=== PATIENT | male | born 1955 | race Asian ===

== ENCOUNTER 2024-04-19 18:17 | Inpatient (IN) | payer OTHER, MEDICAID ==
[~2024-04-19] VITALS: Ht 172.7 cm; Wt 75.3 kg
[2024-04-19 18:58] VITALS: BP 138/81; PULSE 102; RESP 18; TEMP 97.2; O2SAT 94
[2024-04-19 19:27] LABS: BASOPHILS % (AUTO) 0.4 % (0.0-2.0); EOSINOPHILS # (AUTO) 0.3 K/uL (0-0.4); EOSINOPHILS % (AUTO) 3.3 % (0.0-4.0); HEMOGLOBIN 7.2 g/dL (12.0-18.0); LYMPHOCYTES # (AUTO) 1.5 K/uL (2.0-11.5); LYMPHOCYTES % (AUTO) 19.3 % (20.5-51.1); MEAN CORPUSCULAR HEMOGLOBIN 32 pg (27-31); MEAN CORPUSCULAR HGB CONC 33 g/dL (33-37); MEAN CORPUSCULAR VOLUME 96.4 fL (80-94); MONOCYTES # (AUTO) 0.5 K/uL (0.8-1.0); MONOCYTES % (AUTO) 6.5 % (1.7-9.3); NEUTROPHILS # (AUTO) 5.5 K/uL (1.8-7.7); NEUTROPHILS % (AUTO) 70.5 % (42.2-75.2); PLATELET COUNT (AUTO) 269 K/uL (140-450); RED BLOOD CELL COUNT(AUTO) 2.28 MIL/uL (4.20-6.10); WHITE BLOOD COUNT (AUTO) 7.9 K/uL (4.8-10.8)
[2024-04-19 19:28] VITALS: O2SAT 98
[2024-04-19 19:47] LABS: ALBUMIN 1.2 g/dL (3.4-5.0); ANION GAP 13.9 (8-16); CALCIUM 7.4 mg/dL (8.5-10.1); CARBON DIOXIDE 21.3 mmol/L (21-32); CREATININE 1.9 mg/dL (0.6-1.3); POTASSIUM 4.2 mmol/L (3.5-5.1); TOTAL BILIRUBIN 0.1 mg/dL (0.0-1.0); TOTAL PROTEIN, SERUM 4.5 g/dL (6.4-8.2)
[2024-04-19 20:55] LABS: BILIRUBIN,URINE NEGATIVE (NEGATIVE); BLOOD, URINE NEGATIVE (NEGATIVE); LEUKOCYTE ESTERASE ,URINE TRACE (NEGATIVE); NITRITE, URINE NEGATIVE (NEGATIVE); PH,URINE 5.5 (5.0-9.0); PROTEIN,URINE 3+ (NEGATIVE); UGLUCOSE 1+ (NEGATIVE); UROBILINOGEN,URINE 0.2 EU/dL (0.2 - 1)
[2024-04-19 20:59] LABS: APPEARANCE,URINE CLOUDY (CLEAR); COLOR,URINE AMBER (YELLOW)
[2024-04-19 21:04] LABS: RBC,URINE 0-5 /HPF (0-5); WBC,URINE 0-5 /HPF (0-5)
[2024-04-19 21:05] LABS: BACTERIA,URINE FEW /HPF (None Seen); SQUAMOUS EPITHELIAL CELL,UR 0-3 (FEW) /LPF (0-3 (FEW))
[2024-04-19 21:20] LABS: FINE GRANULAR CASTS,URINE 0-10 /LPF (None Seen)
[2024-04-19] MEDS ORDERED: FERR325E14 PO (23:31)
[2024-04-19] MEDS ORDERED: DOCU-299 PO (23:31)
[2024-04-19] MEDS ORDERED: FINA-54 PO (23:31)
[2024-04-19] MEDS ORDERED: XALOS OP (23:31)
[2024-04-19] MEDS ORDERED: LIP80 PO (23:31)
[2024-04-19] MEDS ORDERED: GABA-636 PO (23:31)
[2024-04-19] MEDS ORDERED: MAGN400S60 PO (23:31)
[2024-04-19] MEDS ORDERED: ACET-2619 PO (23:31)
[2024-04-19] MEDS ORDERED: ASCO500T95 PO (23:31)
[2024-04-19] MEDS ORDERED: TAMS0.4C97 PO (23:31)
[2024-04-19] MEDS ORDERED: BISA-279 RC (23:31)
[2024-04-19] MEDS ORDERED: CLON-1170 PO (23:31)
[2024-04-19] MEDS ORDERED: FLEPED RC (23:31)
[2024-04-19] MEDS ORDERED: ICOS1SGL PO (23:31)
[2024-04-19] MEDS ORDERED: BRIM5SOL3 OP (23:31)
[2024-04-19] MEDS ORDERED: FURO-570 PO (23:31)
[2024-04-19] MEDS ORDERED: HYDR100T49 PO (23:31)
[2024-04-19] MEDS ORDERED: DORZ10DR11 OP (23:31)
[2024-04-19] MEDS: FUROSEMIDE 40 MG/4 ML VIAL IVP ONE (23:35)
[2024-04-19] MEDS ORDERED: ALBUTEROL 0.083% 2.5 MG/3 ML NEBU INH PRN (23:40)
[2024-04-19] MEDS ORDERED: ONDANSETRON 4 MG/2 ML VIAL IVP PRN (23:40)
[2024-04-19] MEDS ORDERED: INSULIN LISPRO SLIDING SCALE 100 UNITS/ML VIAL SUBQ PRN (23:50)
[2024-04-19] MEDS ORDERED: DEXTROSE 50% 50 ML SYR IVP PRN (23:50)
[2024-04-20] VITALS (8 sets, daily range): BP systolic 123–163; BP diastolic 73–89; PULSE 96–114; RESP 16–19; TEMP 96.2–97.6; O2SAT 98–100
[2024-04-20 06:59] LABS: BASOPHILS % (AUTO) 0.5 % (0.0-2.0); EOSINOPHILS # (AUTO) 0.3 K/uL (0-0.4); EOSINOPHILS % (AUTO) 2.8 % (0.0-4.0); HEMATOCRIT 24.1 % (36-52); HEMOGLOBIN 8.1 g/dL (12.0-18.0); LYMPHOCYTES # (AUTO) 2.1 K/uL (2.0-11.5); LYMPHOCYTES % (AUTO) 22.3 % (20.5-51.1); MEAN CORPUSCULAR HEMOGLOBIN 32 pg (27-31); MEAN CORPUSCULAR HGB CONC 34 g/dL (33-37); MEAN CORPUSCULAR VOLUME 94.9 fL (80-94); MONOCYTES # (AUTO) 0.6 K/uL (0.8-1.0); MONOCYTES % (AUTO) 6.6 % (1.7-9.3); NEUTROPHILS # (AUTO) 6.5 K/uL (1.8-7.7); NEUTROPHILS % (AUTO) 67.8 % (42.2-75.2); PLATELET COUNT (AUTO) 263 K/uL (140-450); RED BLOOD CELL COUNT(AUTO) 2.54 MIL/uL (4.20-6.10); RED CELL DISTRIBUTION WIDTH 15.1 % (11.6-13.7); WHITE BLOOD COUNT (AUTO) 9.6 K/uL (4.8-10.8)
[2024-04-20 07:16] LABS: ANION GAP 10.5 (8-16); CALCIUM 7.7 mg/dL (8.5-10.1); CARBON DIOXIDE 23.8 mmol/L (21-32); CREATININE 1.9 mg/dL (0.6-1.3); POTASSIUM 4.3 mmol/L (3.5-5.1)
[2024-04-20] MEDS: BLOOD GLUCOSE MONITORING 1 DEV DEV FS SCH (07:30)
[2024-04-20] MEDS ORDERED: ICOSAPENT ETHYL PO SCH (09:00)
[2024-04-20] MEDS ORDERED: CLONIDINE HYDROCHLORIDE 0.1 MG TAB PO SCH (09:00)
[2024-04-20] MEDS ORDERED: NON-FORMULARY ITEM (Brimonidine Tartrate* (Alphagan P 0.1% Ophthalmic Soln*) 1 DROP) OP SCH (09:00)
[2024-04-20] MEDS: LATANOPROST 0.005% OP 2.5 ML BTL OP SCH (09:00)
[2024-04-20] MEDS ORDERED: NON-FORMULARY ITEM (Dorzolamide HCl/Timolol Maleat (Dorzolamide-Timolol Eye Drops) 1 DROP) OP SCH (09:00)
[2024-04-20] MEDS: FUROSEMIDE 20 MG/2 ML VIAL IVP SCH (10:58)
[2024-04-20] MEDS: ASCORBIC ACID 500 MG TAB PO SCH (10:59)
[2024-04-20] MEDS: FERROUS SULFATE 325 MG TABEC PO SCH (10:59)
[2024-04-20] MEDS: TAMSULOSIN 0.4 MG CAP PO SCH (10:59)
[2024-04-20] MEDS: FINASTERIDE 5 MG TAB PO SCH (11:00)
[2024-04-20] MEDS: GABAPENTIN 100 MG CAP PO SCH (11:00)
[2024-04-20] MEDS: hydrALAZINE 25 MG TAB PO SCH (11:03)
[2024-04-20] MEDS: ALBUMIN HUMAN 25% 50 ML IV SCH (21:08)
[2024-04-21] VITALS (7 sets, daily range): BP systolic 126–176; BP diastolic 67–86; PULSE 94–111; RESP 18; TEMP 97.7–98.6; O2SAT 96–100
[2024-04-21] MEDS: hydrALAZINE 20 MG/ML VIAL IVP PRN (00:39)
[2024-04-21 05:57] LABS: BASOPHILS # (AUTO) 0.1 K/uL (0.00-0.22); BASOPHILS % (AUTO) 0.7 % (0.0-2.0); EOSINOPHILS # (AUTO) 0.3 K/uL (0-0.4); EOSINOPHILS % (AUTO) 3.3 % (0.0-4.0); HEMATOCRIT 20.5 % (36-52); LYMPHOCYTES # (AUTO) 1.7 K/uL (2.0-11.5); LYMPHOCYTES % (AUTO) 20.2 % (20.5-51.1); MEAN CORPUSCULAR HEMOGLOBIN 32 pg (27-31); MEAN CORPUSCULAR HGB CONC 34 g/dL (33-37); MEAN CORPUSCULAR VOLUME 94.2 fL (80-94); MONOCYTES # (AUTO) 0.6 K/uL (0.8-1.0); MONOCYTES % (AUTO) 6.6 % (1.7-9.3); NEUTROPHILS # (AUTO) 5.8 K/uL (1.8-7.7); NEUTROPHILS % (AUTO) 69.2 % (42.2-75.2); PLATELET COUNT (AUTO) 241 K/uL (140-450); RED BLOOD CELL COUNT(AUTO) 2.18 MIL/uL (4.20-6.10); RED CELL DISTRIBUTION WIDTH 14.6 % (11.6-13.7); WHITE BLOOD COUNT (AUTO) 8.3 K/uL (4.8-10.8)
[2024-04-21 07:03] LABS: ALBUMIN 1.3 g/dL (3.4-5.0); ANION GAP 10.1 (8-16); CALCIUM 7.3 mg/dL (8.5-10.1); CREATININE 1.8 mg/dL (0.6-1.3); POTASSIUM 4.1 mmol/L (3.5-5.1); TOTAL BILIRUBIN 0.2 mg/dL (0.0-1.0); TOTAL PROTEIN, SERUM 4.2 g/dL (6.4-8.2)
[2024-04-21] MEDS ORDERED: LATANOPROST 0.005% OP 2.5 ML BTL OP SCH (09:00)
[2024-04-21 10:05] LABS: CREATININE,URINE RANDOM 21 mg/dL (30-125); URINE SODIUM, RANDOM 120 mmol/l (40-220)
[2024-04-21] MEDS: LATANOPROST 0.005% OP 2.5 ML BTL OP SCH (21:25)
[2024-04-22 04:00] VITALS: BP 151/92; PULSE 95; RESP 18; TEMP 97.9; O2SAT 98
[2024-04-22 06:53] LABS: BASOPHILS % (AUTO) 0.4 % (0.0-2.0); EOSINOPHILS # (AUTO) 0.2 K/uL (0-0.4); EOSINOPHILS % (AUTO) 2.7 % (0.0-4.0); HEMATOCRIT 21.9 % (36-52); HEMOGLOBIN 7.4 g/dL (12.0-18.0); LYMPHOCYTES # (AUTO) 1.9 K/uL (2.0-11.5); LYMPHOCYTES % (AUTO) 22.1 % (20.5-51.1); MEAN CORPUSCULAR HEMOGLOBIN 32 pg (27-31); MEAN CORPUSCULAR HGB CONC 34 g/dL (33-37); MEAN CORPUSCULAR VOLUME 94.8 fL (80-94); MONOCYTES # (AUTO) 0.5 K/uL (0.8-1.0); MONOCYTES % (AUTO) 5.9 % (1.7-9.3); NEUTROPHILS % (AUTO) 68.9 % (42.2-75.2); PLATELET COUNT (AUTO) 251 K/uL (140-450); RED BLOOD CELL COUNT(AUTO) 2.32 MIL/uL (4.20-6.10); RED CELL DISTRIBUTION WIDTH 14.3 % (11.6-13.7); WHITE BLOOD COUNT (AUTO) 8.7 K/uL (4.8-10.8)
[2024-04-22 07:56] LABS: CALCIUM 7.6 mg/dL (8.5-10.1); CARBON DIOXIDE 23.9 mmol/L (21-32); CREATININE 1.8 mg/dL (0.6-1.3); POTASSIUM 3.9 mmol/L (3.5-5.1)
[2024-04-22 08:00] VITALS: PULSE 89
[2024-04-22 08:34] VITALS: BP 166/72; PULSE 89; RESP 16; TEMP 98.3; O2SAT 98
[2024-04-22 16:00] VITALS: BP 149/77; PULSE 93; RESP 18; TEMP 98.5; O2SAT 98
[2024-04-22 20:00] VITALS: PULSE 93; RESP 18; O2SAT 98
[2024-04-22 21:37] VITALS: BP 159/79; PULSE 94; RESP 18; TEMP 97.6; O2SAT 98
[2024-04-23 08:00] VITALS: BP 142/79; PULSE 90; RESP 18; TEMP 97.9; O2SAT 98
== END 2024-04-23 14:30 | DRG 432 ==
LOC: MED 18:17 → MTU 23:42 → MMU 04-20 06:52 → MTU 04-21 16:00
PROVIDERS: ADMIT Student in an Organized Health Care Education/Training Program; ATTEND Student in an Organized Health Care Education/Training Program
DX: K74.60 Unspecified cirrhosis of liver (principal); E43 Unspecified severe protein-calorie malnutrition; J96.00 Acute respiratory failure, unspecified whether with hypoxia or hypercapnia; N17.9 Acute kidney failure, unspecified; J90 Pleural effusion, not elsewhere classified; R18.8 Other ascites; I12.9 Hypertensive chronic kidney disease with stage 1 through stage 4 chronic kidney disease, or unspecified chronic kidney disease; E11.22 Type 2 diabetes mellitus with diabetic chronic kidney disease; N18.9 Chronic kidney disease, unspecified; E87.70 Fluid overload, unspecified; E88.09 Other disorders of plasma-protein metabolism, not elsewhere classified; Z68.25 Body mass index [BMI] 25.0-25.9, adult; Z79.899 Other long term (current) drug therapy
CPT/HCPCS: 36415; 76705; 80048; 80053; 81001; 82570; 82948; 83690; 83735; 84156; 84300; 85025; 87081; 96374; 99285; J0360; J0696; J1815; J1940; J7060; P9046; Q0092

== ENCOUNTER 2024-06-14 11:58 | Inpatient (IN) | payer OTHER, MEDICAID ==
[~2024-06-14] VITALS: Ht 167.6 cm; Wt 70.8 kg
[~2024-06-14 11:58] MED LIST: ACET-2619 PO; ASCO500T95 PO; BISA-279 RC; BRIM5SOL3 OP; CLON-1170 PO; DOCU-299 PO; DORZ10DR11 OP; FERR325E14 PO; FINA-54 PO; FLEPED RC; FURO-570 PO; GABA-636 PO; HYDR100T49 PO; ICOS1SGL PO; LIP80 PO; MAGN400S60 PO; TAMS0.4C97 PO; XALOS OP
[2024-06-14 12:01] VITALS: BP 152/78; PULSE 94; RESP 20; TEMP 97.3; O2SAT 98
[2024-06-14 12:52] LABS: BASOPHILS % (AUTO) 0.3 % (0.0-2.0); HEMATOCRIT 26.1 % (36-52); HEMOGLOBIN 8.7 g/dL (12.0-18.0); LYMPHOCYTES # (AUTO) 1.2 K/uL (2.0-11.5); LYMPHOCYTES % (AUTO) 7.9 % (20.5-51.1); MEAN CORPUSCULAR HEMOGLOBIN 30 pg (27-31); MEAN CORPUSCULAR HGB CONC 33 g/dL (33-37); MEAN CORPUSCULAR VOLUME 91.4 fL (80-94); MONOCYTES # (AUTO) 0.1 K/uL (0.8-1.0); MONOCYTES % (AUTO) 0.9 % (1.7-9.3); NEUTROPHILS # (AUTO) 14.1 K/uL (1.8-7.7); NEUTROPHILS % (AUTO) 90.9 % (42.2-75.2); PLATELET COUNT (AUTO) 298 K/uL (140-450); RED BLOOD CELL COUNT(AUTO) 2.86 MIL/uL (4.20-6.10); RED CELL DISTRIBUTION WIDTH 16.1 % (11.6-13.7); WHITE BLOOD COUNT (AUTO) 15.6 K/uL (4.8-10.8)
[2024-06-14 13:04] LABS: ALBUMIN 1.4 g/dL (3.4-5.0); ANION GAP 11.9 (8-16); CARBON DIOXIDE 23.1 mmol/L (21-32); CREATININE 2.4 mg/dL (0.6-1.3); TOTAL BILIRUBIN 0.4 mg/dL (0.0-1.0); TOTAL PROTEIN, SERUM 5.6 g/dL (6.4-8.2)
[2024-06-14 13:10] LABS: LACTIC ACID 1.1 mmol/L (0.4-2.0)
[2024-06-14] MEDS: ONDANSETRON 4 MG/2 ML VIAL IVP ONE (13:24)
[2024-06-14] MEDS ORDERED: PIPERACILLIN/TAZOBACTAM 3.375 GM VIAL IV ONE (13:28)
[2024-06-14] MEDS: NACL 0.9% 1,000 ML IV ONE ×2 (13:37→21:24)
[2024-06-14] MEDS: PIPERACILLIN/TAZOBACTAM 3.375 GM in DEXTROSE 5% 50 ML IV ONE (13:40)
[2024-06-14] MEDS: MORPHINE SULFATE 4 MG/ML SYR IVP ONE (16:10)
[2024-06-14] MEDS ORDERED: ALBUTEROL 0.083% 2.5 MG/3 ML NEBU INH PRN (16:45)
[2024-06-14] MEDS: PANTOPRAZOLE 40 MG INJ VIAL IVP ONE (16:50)
[2024-06-14 16:57] LABS: APPEARANCE,URINE CLEAR (CLEAR); BILIRUBIN,URINE NEGATIVE (NEGATIVE); BLOOD, URINE TRACE-I (NEGATIVE); COLOR,URINE YELLOW (YELLOW); LEUKOCYTE ESTERASE ,URINE TRACE (NEGATIVE); NITRITE, URINE POSITIVE (NEGATIVE); PROTEIN,URINE 3+ (NEGATIVE); UGLUCOSE 2+ (NEGATIVE)
[2024-06-14 17:06] LABS: BACTERIA,URINE 10-30 (MOD) /HPF (None Seen); SQUAMOUS EPITHELIAL CELL,UR 0-3 (FEW) /LPF (0-3 (FEW))
[2024-06-14] MEDS ORDERED: CLON0.1T16 PO (17:43)
[2024-06-14] MEDS ORDERED: TAMS0.4C96 PO (17:43)
[2024-06-14] MEDS ORDERED: ATOR40TA PO (17:43)
[2024-06-14 20:00] VITALS: BP 158/69; PULSE 142; PULSE 146; RESP 20; TEMP 100.4; O2SAT 98
[2024-06-14] MEDS: ACETAMINOPHEN 325 MG TAB PO PRN (20:47)
[2024-06-14] MEDS ORDERED: PIPERACILLIN/TAZOBACTAM 3.375 GM in DEXTROSE 5% 50 ML IV SCH (21:00)
[2024-06-14] MEDS: NACL 0.9% 1,000 ML IV SCH (21:24)
[2024-06-14] MEDS: PANTOPRAZOLE 40 MG INJ VIAL IVP SCH (21:24)
[2024-06-14] MEDS ORDERED: INSULIN LISPRO SLIDING SCALE 100 UNITS/ML VIAL SUBQ PRN (23:00)
[2024-06-14] MEDS ORDERED: DEXTROSE 50% 50 ML SYR IVP PRN (23:00)
[2024-06-14] MEDS: PIPERACILLIN/TAZOBACTAM 2.25 GM in DEXTROSE 5% 50 ML IV SCH (23:59)
[2024-06-15] VITALS (8 sets, daily range): BP systolic 110–165; BP diastolic 61–83; PULSE 77–142; RESP 18–20; TEMP 97.4–99; O2SAT 97–99
[2024-06-15] MEDS: MORPHINE SULFATE 2 MG/ML SYR IVP PRN (00:15)
[2024-06-15] MEDS: PIPERACILLIN/TAZOBACTAM 2.25 GM VIAL IV ONE (05:08)
[2024-06-15] MEDS: BLOOD GLUCOSE MONITORING 1 DEV DEV FS SCH (06:35)
[2024-06-15 06:51] LABS: BASOPHILS % (AUTO) 0.1 % (0.0-2.0); EOSINOPHILS % (AUTO) 0.1 % (0.0-4.0); HEMATOCRIT 20.4 % (36-52); LYMPHOCYTES % (AUTO) 12.2 % (20.5-51.1); MEAN CORPUSCULAR HEMOGLOBIN 31 pg (27-31); MEAN CORPUSCULAR HGB CONC 34 g/dL (33-37); MEAN CORPUSCULAR VOLUME 90.9 fL (80-94); MONOCYTES # (AUTO) 0.8 K/uL (0.8-1.0); MONOCYTES % (AUTO) 4.7 % (1.7-9.3); NEUTROPHILS # (AUTO) 13.8 K/uL (1.8-7.7); NEUTROPHILS % (AUTO) 82.9 % (42.2-75.2); PLATELET COUNT (AUTO) 242 K/uL (140-450); RED BLOOD CELL COUNT(AUTO) 2.25 MIL/uL (4.20-6.10); RED CELL DISTRIBUTION WIDTH 16.1 % (11.6-13.7); WHITE BLOOD COUNT (AUTO) 16.7 K/uL (4.8-10.8)
[2024-06-15 07:05] LABS: ANION GAP 13.2 (8-16); CALCIUM 7.4 mg/dL (8.5-10.1); CARBON DIOXIDE 22.5 mmol/L (21-32); CREATININE 2.5 mg/dL (0.6-1.3); POTASSIUM 3.7 mmol/L (3.5-5.1)
[2024-06-15 07:11] LABS: HEMOGLOBIN 6.9 g/dL (12.0-18.0)
[2024-06-15 08:29] LABS: HEMATOCRIT 20.7 % (36-52)
[2024-06-15 08:33] LABS: HEMOGLOBIN 6.9 g/dL (12.0-18.0)
[2024-06-15] MEDS: CLONIDINE HYDROCHLORIDE 0.1 MG TAB PO PRN (17:58)
[2024-06-15 18:35] LABS: HEMATOCRIT 27.7 % (36-52); HEMOGLOBIN 9.2 g/dL (12.0-18.0)
[2024-06-15] MEDS: ALBUMIN HUMAN 25% 100 ML IV SCH (21:24)
[2024-06-16] VITALS (7 sets, daily range): BP systolic 113–182; BP diastolic 60–82; PULSE 75–91; RESP 18; TEMP 96.9–98.8; O2SAT 96–98
[2024-06-16 06:53] LABS: BASOPHILS % (AUTO) 0.2 % (0.0-2.0); EOSINOPHILS # (AUTO) 0.1 K/uL (0-0.4); EOSINOPHILS % (AUTO) 0.6 % (0.0-4.0); HEMATOCRIT 27.1 % (36-52); LYMPHOCYTES # (AUTO) 2.6 K/uL (2.0-11.5); LYMPHOCYTES % (AUTO) 12.1 % (20.5-51.1); MEAN CORPUSCULAR HEMOGLOBIN 30 pg (27-31); MEAN CORPUSCULAR HGB CONC 33 g/dL (33-37); MONOCYTES # (AUTO) 0.8 K/uL (0.8-1.0); MONOCYTES % (AUTO) 3.6 % (1.7-9.3); NEUTROPHILS % (AUTO) 83.5 % (42.2-75.2); PLATELET COUNT (AUTO) 249 K/uL (140-450); RED BLOOD CELL COUNT(AUTO) 2.98 MIL/uL (4.20-6.10); WHITE BLOOD COUNT (AUTO) 21.5 K/uL (4.8-10.8)
[2024-06-16 07:36] LABS: ANION GAP 13.9 (8-16); CALCIUM 7.9 mg/dL (8.5-10.1); CARBON DIOXIDE 22.4 mmol/L (21-32); CREATININE 2.6 mg/dL (0.6-1.3); POTASSIUM 3.3 mmol/L (3.5-5.1)
[2024-06-16] MEDS: hydrALAZINE 25 MG TAB PO SCH (16:42)
[2024-06-16 19:48] LABS: CHLORIDE,URINE RANDOM 61 mmol/L (110-250); CREATININE,URINE RANDOM 50 mg/dL (30-125); URINE SODIUM, RANDOM 56 mmol/l (40-220)
[2024-06-17] VITALS (7 sets, daily range): BP systolic 118–181; BP diastolic 60–91; PULSE 74–92; RESP 18–19; TEMP 97.8–98.6; O2SAT 95–100
[2024-06-17 08:16] LABS: BASOPHILS # (AUTO) 0.1 K/uL (0.00-0.22); BASOPHILS % (AUTO) 0.5 % (0.0-2.0); EOSINOPHILS # (AUTO) 0.2 K/uL (0-0.4); EOSINOPHILS % (AUTO) 1.9 % (0.0-4.0); HEMATOCRIT 26.6 % (36-52); LYMPHOCYTES # (AUTO) 1.9 K/uL (2.0-11.5); LYMPHOCYTES % (AUTO) 15.1 % (20.5-51.1); MEAN CORPUSCULAR HEMOGLOBIN 31 pg (27-31); MEAN CORPUSCULAR HGB CONC 34 g/dL (33-37); MEAN CORPUSCULAR VOLUME 91.6 fL (80-94); MONOCYTES # (AUTO) 0.5 K/uL (0.8-1.0); NEUTROPHILS # (AUTO) 9.9 K/uL (1.8-7.7); NEUTROPHILS % (AUTO) 78.5 % (42.2-75.2); PLATELET COUNT (AUTO) 223 K/uL (140-450); RED CELL DISTRIBUTION WIDTH 15.6 % (11.6-13.7); WHITE BLOOD COUNT (AUTO) 12.7 K/uL (4.8-10.8)
[2024-06-17 08:44] LABS: ANION GAP 14.2 (8-16); CALCIUM 7.3 mg/dL (8.5-10.1); CARBON DIOXIDE 20.9 mmol/L (21-32); CREATININE 2.5 mg/dL (0.6-1.3); POTASSIUM 3.1 mmol/L (3.5-5.1)
[2024-06-17] MEDS: hydrALAZINE 20 MG/ML VIAL IVP PRN (09:53)
[2024-06-17] MEDS: POTASSIUM CHLORIDE 40 MEQ, LIDOCAINE 1% 25 MG in NACL 0.9% 250 ML IV SCH (14:05)
[2024-06-17 23:40] LABS: BILIRUBIN,URINE NEGATIVE (NEGATIVE); BLOOD, URINE 1+ (NEGATIVE); COLOR,URINE YELLOW (YELLOW); LEUKOCYTE ESTERASE ,URINE NEGATIVE (NEGATIVE); NITRITE, URINE POSITIVE (NEGATIVE); PROTEIN,URINE 3+ (NEGATIVE); UGLUCOSE 1+ (NEGATIVE); UROBILINOGEN,URINE 0.2 EU/dL (0.2 - 1)
[2024-06-17 23:41] LABS: APPEARANCE,URINE SLIGHTLY CLOUDY (CLEAR)
[2024-06-17 23:42] LABS: BACTERIA,URINE 1+ /HPF (None Seen); WBC,URINE 0-5 /HPF (0-5)
[2024-06-17 23:43] LABS: COARSE GRANULAR CASTS,URINE 0-10 /LPF (None Seen); MUCUS,URINE None Seen /LPF (None Seen); SQUAMOUS EPITHELIAL CELL,UR 0-3 (FEW) /LPF (0-3 (FEW)); WAXY CASTS,URINE 0-10 /LPF (None Seen)
[2024-06-18] VITALS (7 sets, daily range): BP systolic 140–227; BP diastolic 82–95; PULSE 85–99; RESP 18–19; TEMP 97.9–98.9; O2SAT 95–98
[2024-06-18 07:59] LABS: BASOPHILS # (AUTO) 0.1 K/uL (0.00-0.22); BASOPHILS % (AUTO) 0.7 % (0.0-2.0); EOSINOPHILS # (AUTO) 0.3 K/uL (0-0.4); EOSINOPHILS % (AUTO) 2.7 % (0.0-4.0); HEMATOCRIT 26.4 % (36-52); HEMOGLOBIN 8.8 g/dL (12.0-18.0); LYMPHOCYTES # (AUTO) 1.9 K/uL (2.0-11.5); LYMPHOCYTES % (AUTO) 18.5 % (20.5-51.1); MEAN CORPUSCULAR HEMOGLOBIN 31 pg (27-31); MEAN CORPUSCULAR HGB CONC 34 g/dL (33-37); MEAN CORPUSCULAR VOLUME 92.7 fL (80-94); MONOCYTES # (AUTO) 0.4 K/uL (0.8-1.0); MONOCYTES % (AUTO) 4.3 % (1.7-9.3); NEUTROPHILS # (AUTO) 7.6 K/uL (1.8-7.7); NEUTROPHILS % (AUTO) 73.8 % (42.2-75.2); PLATELET COUNT (AUTO) 220 K/uL (140-450); RED BLOOD CELL COUNT(AUTO) 2.84 MIL/uL (4.20-6.10); RED CELL DISTRIBUTION WIDTH 16.1 % (11.6-13.7); WHITE BLOOD COUNT (AUTO) 10.3 K/uL (4.8-10.8)
[2024-06-18 08:22] LABS: ANION GAP 11.2 (8-16); CALCIUM 7.3 mg/dL (8.5-10.1); CARBON DIOXIDE 22.3 mmol/L (21-32); CREATININE 2.6 mg/dL (0.6-1.3); POTASSIUM 3.5 mmol/L (3.5-5.1)
[2024-06-18] MEDS: FUROSEMIDE 20 MG/2 ML VIAL IVP SCH (08:41)
== END 2024-06-18 17:31 | DRG 371 ==
LOC: MED 11:58 → MTU 16:48
PROVIDERS: ADMIT Student in an Organized Health Care Education/Training Program; ATTEND Student in an Organized Health Care Education/Training Program
PROC: 30233N1 Transfusion of Nonautologous Red Blood Cells into Peripheral Vein, Percutaneous Approach (ICD-10-PCS; principal; 2024-06-15)
DX: A04.9 Bacterial intestinal infection, unspecified (principal); E43 Unspecified severe protein-calorie malnutrition; J96.00 Acute respiratory failure, unspecified whether with hypoxia or hypercapnia; R18.8 Other ascites; D62 Acute posthemorrhagic anemia; N17.9 Acute kidney failure, unspecified; R65.10 Systemic inflammatory response syndrome (SIRS) of non-infectious origin without acute organ dysfunction; I12.9 Hypertensive chronic kidney disease with stage 1 through stage 4 chronic kidney disease, or unspecified chronic kidney disease; E78.5 Hyperlipidemia, unspecified; E88.09 Other disorders of plasma-protein metabolism, not elsewhere classified; E11.22 Type 2 diabetes mellitus with diabetic chronic kidney disease; E03.9 Hypothyroidism, unspecified; K74.60 Unspecified cirrhosis of liver; N18.9 Chronic kidney disease, unspecified; Z79.899 Other long term (current) drug therapy; Z68.25 Body mass index [BMI] 25.0-25.9, adult
CPT/HCPCS: 36415; 36430; 80048; 80053; 81001; 82436; 82570; 82948; 83605; 83735; 84156; 84300; 85018; 85025; 86886; 86900; 86901; 86920; 87040; 87081; 87086; 93005; 96361; 96365; 96375; 97163-GP; 97530; 99285; J0360; J1815; J1940; J2001; J2270; J2405; J2470; J2543; J3480; J7030; J7060; P9016; P9046